=== PATIENT | female | born 1965 | race Caucasian/White ===

== ENCOUNTER 2024-08-02 10:10 | Outpatient (CLI) | payer MEDICAID, SELFPAY ==
--- NOTE | 2024-08-02 10:21 | XR_ITS ---
WS: [id number] Exam: XR thoracic spine 2V [id number] Date/Time of Exam: 08/02/2024 10:30 AM Reason For Exam: THORACIC FRACTURE There is a compression fracture of the upper plate of T12 with about 15% loss of vertebral height and no posterior displacement. There are no other fractures of the T-spine. Mild spondylosis. Normal par aspinal soft tissues. XR/XR thoracic spine 2V [id number] IMPRESSION: 1. Low-grade compression fracture of the upper plate of T12 without obvious pos terior displacement.
== END 2024-08-02 10:11 | disposition home or self-care (01) ==
LOC: RAD 10:17
PROVIDERS: Visit Provider Neurological Surgery
DX: S22.080A Wedge compression fracture of T11-T12 vertebra, initial encounter for closed fracture (principal); X58.XXXA Exposure to other specified factors, initial encounter
CPT/HCPCS: 72070